=== PATIENT | female | born 2000 ===

== ENCOUNTER 2019-01-25 11:41 | Emergency (ER) | payer OTHER ==
[~2019-01-25] VITALS: Ht 157.5 cm; Wt 68.2 kg
[2019-01-25] MEDS ORDERED: ALBU8.5H8 IH (11:50)
[2019-01-25] MEDS ORDERED: IBUPROFEN 400 MG TABLET PO ONE (12:15)
[2019-01-25 13:19] VITALS: BP 121/88
== END 2019-01-25 13:21 | disposition home or self-care (01) ==
LOC: EMS 11:51
DX: S90.112A Contusion of left great toe without damage to nail, initial encounter (principal); J45.909 Unspecified asthma, uncomplicated; F12.90 Cannabis use, unspecified, uncomplicated; Z98.890 Other specified postprocedural states; Z79.899 Other long term (current) drug therapy; W22.8XXA Striking against or struck by other objects, initial encounter; Y93.89 Activity, other specified; Y92.89 Other specified places as the place of occurrence of the external cause; Y99.8 Other external cause status